=== PATIENT | male | born 1985 | race Caucasian/White ===

== ENCOUNTER 2017-04-24 20:32 | Emergency (ER) | payer OTHER ==
[~2017-04-24] VITALS: Ht 182.9 cm; Wt 113.4 kg
--- NOTE | ~2017-04-24 | CT4 ---
[facility] A Service of [facility] RADIOLOGY TEXT RESULTS PATIENT: GIORGIO MALCOLM LOCATION: CFTX : 84 UNIT #: [id number] AGE: [address]: Byron Brice SEX: M ORDER DR: [id number] [facility]. [place], [place] [address] [id number] MR#: [id number] Acc #: [id number] NAME: GIORGIO MALCOLM : 1985 SEX: M STUDY DATE/TIME: 04/24/2017 22:33 UNIT: CFTX ROOM: STUDY DESCRIPTION: CT Abd and Pelv Wo Cont Attending Physician: Byron Brice P.A.-C. Ordering Physician: Byron Brice P.A.-C. Primary Care Physician: No Primary Care Physician MEDICAL IMAGING REPORT This report is preliminary unless electronic signature is present EXAM CT abdomen and pelvis, noncontrast, kidney stone protocol, 04/24/2017. HISTORY 31-year-old male in the ED complaining of 1-week history of left flank pain. History of kidney stones. TECHNIQUE CT examination of the abdomen and pelvis without oral or IV contrast using kidney stone protocol. This CT exam was performed with one or more of the following radiation dose reduction techniques: automatic exposure control, adjustment of mA and/or kV according to patient size, and iterative reconstruction. ABDOMEN FINDINGS 2 mm obstructing calculus in the left distal ureter at the UVJ, partially protruding into the urinary bladder. There is only slight dilatation of the left ureter. There are 2 large nonobstructing calculi within the central and lower right renal collecting system measuring 2.5 cm and 1.5 cm. Liver, pancreas and spleen are within normal limits. Nondistended gallbladder. No bile duct dilatation. Small bowel and colon are normal in caliber and appearance, as imaged. Normal appendix. PELVIS FINDINGS Nondistended urinary bladder. Prostate and rectum are negative. No inguinal hernia. [facility] A Service of [facility] RADIOLOGY TEXT RESULTS PATIENT: GIORGIO MALCOLM LOCATION: CFTX : 84 UNIT #: [id number] AGE: [address]: Byron Brice SEX: M ORDER DR: IMPRESSION 1. 2 mm calculus in the left distal ureter at the UVJ causing only slight dilatation of the left ureter. 2. Two large nonobstructing calculi within the central and lower right renal collecting system measuring 2.5 cm and 1.5 cm. 3. Remainder of the examination is negative. Normal appendix. Dictated by... Alex Ramirez M.D. THIS IS AN ELECTRONICALLY VERIFIED REPORT Alex Ramirez M.D. at 04/25/2017 5:04 PM ZAID/frankie TD: 04/25/2017 08:57 JOB #: [id number] MEDICAL IMAGING REPORT Page 1 of 1 COPY
[2017-04-24 22:11] LABS: URINE SOURCE CLEAN CATCH
[2017-04-24 22:21] LABS: URINE APPEARANCE CLEAR; URINE BILIRUBIN NEG (NEG); URINE BLOOD 3+ (NEG); URINE COLOR DK YELLOW; URINE GLUCOSE NEG (NEG); URINE KETONE NEG (NEG); URINE LEUKOCYTE ESTERASE TRACE (NEG); URINE NITRATE NEG (NEG); URINE PH 5.5 (5-8); URINE PROTEIN 1+ (NEG); URINE SPECIFIC GRAVITY 1.023 (1.003-1.035)
[2017-04-24 22:23] LABS: CULTURE INDICATED? YES; URBCS1 AUWI 50-100 /[HPF] (0-2); URINE BACTERIA AUWI NEG (NEGATIVE); URINE SQUAMOUS EPITHELIAL CELL NONE SEEN /[HPF]
[2017-04-24 23:12] LABS: ALBUMIN SERUM 4.5 g/dL (3.5-5.0); BILIRUBIN, DIRECT 0.2 mg/dL (0.0-0.2); BILIRUBIN,INDIRECT 0.6 mg/dL (0.0-0.9); BILIRUBIN,TOTAL 0.8 mg/dL (0.2-2.0); CALCIUM SERUM 8.8 mg/dL (8.4-10.2); GLOM FILT RATE Estimated 99.2 mL/min (>60); PROTEIN TOTAL SERUM 7.7 g/dL (6.0-8.3)
[2017-04-24 23:18] LABS: BASOPHIL# 0.1 X10e3 (0-0.3); BASOPHIL% 0.4 % (0-2.5); EOSINOPHIL% 0.4 % (0.0-7.0); HEMATOCRIT 39.9 % (38.0-50.0); HEMOGLOBIN 13.6 gm/dL (13.0-16.0); LYMPHOCYTE# 1.7 X10e3 (1.0-3.5); LYMPHOCYTE% 14.2 % (17.0-45.0); MEAN CELL VOLUME 86.5 FL (83-96); MEAN CORPUSCULAR HEMOGLOBIN 29.4 PG (28-34); MEAN PLATELET VOLUME 9.2 FL (6.5-11.5); MONOCYTE# 0.9 X10e3 (0-1.0); MONOCYTE% 7.7 % (3.0-12.0); NEUTROPHIL# 9.4 X10e3 (1.5-7.1); NEUTROPHIL% 77.3 % (40-75); PLATELET COUNT 211 X10e3 (140-420); RED BLOOD COUNT 4.61 X10e (3.90-5.60); WHITE BLOOD COUNT 12.2 X10e3 (4.0-10.5)
[2017-04-24 23:19] LABS: DIFF IND NO
== END 2017-04-24 23:45 | disposition home or self-care (01) ==
LOC: CED 20:32 → CFTX 20:32
PROVIDERS: Physician Assistant
DX: N20.1 Calculus of ureter (principal); F17.210 Nicotine dependence, cigarettes, uncomplicated; Z88.1 Allergy status to other antibiotic agents; Z88.8 Allergy status to other drugs, medicaments and biological substances
CPT/HCPCS: 36415; 74176; 80048; 80076; 81003; 83690; 85025; 87086; 96361; 96374; 96375; 99284; J1885; J2405